=== PATIENT | male | born 1955 | race Caucasian/White ===

== ENCOUNTER 2022-03-06 12:50 | Emergency (ER) | payer MEDICARE, SELFPAY ==
[2022-03-06 12:53] VITALS: BP 137/72; PULSE 92; RESP 18; TEMP 36.5; O2SAT 98; BMI 29.3
--- NOTE | 2022-03-06 13:02 | EKG12_ITS ---
Test Reason : CP Blood Pressure : / mmHG Vent. Rate : 090 BPM Atrial Rate : 090 BPM P-R Int : 192 ms QRS Dur : 166 ms QT Int : 436 ms P-R-T Axes : 060 -77 064 degrees QTc Int : 533 ms Atrial-sensed ventricular-paced rhythm Abnormal ECG Confirmed by ROBIN CORTES, CALOS ([id number]), medical transcription editor SEVERINO JOHNSON ([id number]) on 03/08/2022 1:12:50 PM Referred By: Confirmed By:CALOS KELLY MD
--- NOTE | 2022-03-06 13:05 | ED.VIS.CHEST ---
HPI <KYLE Amin - Last Filed: 03/06/22 18:18> History of Present Illness Chief Complaint: Chest Pain Narrative Narrative: 66-year-old male with PMH of HTN, HLD, DM2, CAD with 2 stents, pacemaker presents with an episode of chest pressure and lightheadedness. 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 No nausea/vomiting or diaphoresis. Symptoms lasted about 20 to 30 minutes. According to EMS he briefly had a heart rate in the 30s during transport but arrived with normal vital signs. He now feels back to normal except tired. He states his pacemaker was placed 8 months ago at [facility] due to low heart rate in the 30s. He has not had issues with it. He actually has a routine appointment with his scientific informatics project leader, Dr. Minor, in 2 days. He also reports 2 months ago having a normal stress test and echo. He has no history of DVT/PE or recent leg pain or swelling. PFS <KYLE Amin - Last Filed: 03/06/22 18:18> [facility] Medical History (Updated 03/06/22 @ 17:48 by KYLE Amin) Diabetes mellitus Hyperlipidemia Hypertension Pacemaker Home Medications aspirin 81 mg PO DAILY 03/06/22 [History Last Taken Unknown] clopidogrel [Plavix] 75 mg PO DAILY 03/06/22 [History Last Taken Unknown] ergocalciferol (vitamin D2) [Vitamin D2] 1,250 mcg PO QWEEK 03/06/22 [History Last Taken Unknown] felodipine 5 mg PO DAILY 03/06/22 [History Last Taken Unknown] insulin aspart U-100 [Novolog U-100 Insulin aspart] 22 unit SUBCUT TIDCM 03/06/22 [History Last Taken Unknown] insulin aspart U-100 [Novolog U-100 Insulin aspart] See Protocol SUBCUT TID 03/06/22 [History Last Taken Unknown] insulin degludec [Tresiba FlexTouch U-100] 35 unit SUBCUT BID 03/06/22 [History Last Taken Unknown] losartan 100 mg PO DAILY 03/06/22 [History Last Taken Unknown] magnesium oxide 400 mg PO QHS 03/06/22 [History Last Taken Unknown] metformin 500 mg PO BID 03/06/22 [History Last Taken Unknown] metoprolol succinate 25 mg PO QHS 03/06/22 [History Last Taken Unknown] nitroglycerin [Nitrostat] 0.4 mg SUBLINGUAL Q5M PRN 03/06/22 [History Last Taken Unknown] pantoprazole [Protonix] 40 mg PO DAILY 03/06/22 [History Last Taken Unknown] rosuvastatin 40 mg PO QHS 03/06/22 [History Last Taken Unknown] Allergy/AdvReac Type Severity Reaction Status Date / Time No Known Allergies Allergy Verified 03/06/22 12:52 Social History Smoking Status: Current every day smoker tobacco type: e-cigarettes ROS <KYLE Amin - Last Filed: 03/06/22 18:18> ROS ED ROS Narrative Constitutional: Negative for fever, chills, malaise. Eyes: Negative for visual change. ENT: Negative for sore throat, ear pain, rhinorrhea. CVS: Positive for palpitations, chest pain. Negative for syncope. Respiratory: Positive for shortness of breath. Negative for cough, orthopnea. GI: Negative for abdominal pain, nausea, vomiting, diarrhea, constipation, melena, hematochezia. : Negative for dysuria, hematuria or frequency. Neuro: Negative for headache, motor/sensory dysfunction. Skin: Negative for rash, abscess, or wound. Musc: Negative for joint pain, swelling, trauma. Heme: Negative for easy bruising, bleeding, lymphadenopathy. EXAM <KYLE Amin - Last Filed: 03/06/22 18:18> Physical Exam Narrative Exam Narrative: CONST: Patient sitting in no acute distress. EYES: Normal inspection. NECK: Normal inspection. RESP: No respiratory distress, CTAB. CVS: Regular rate and rhythm, no murmur, no gallop. ABD: Soft and nontender, no guarding or rebound, nondistended, no hepatosplenomegaly. SKIN: Color normal, no rash, warm, dry, intact. EXTREMITIES: Normal appearance, no pedal edema. NEURO: Oriented x4. PSYCH: Normal affect. Const Vital Signs: 03/06/22 12:53 03/06/22 13:09 03/06/22 14:02 Temperature 97.7 F L Temperature Source Temporal Pulse Rate 92 83 Respiratory Rate 18 16 Blood Pressure 137/72 H 144/76 H Blood Pressure Mean 93 98 Pulse Ox 98 97 Oxygen Delivery Method Room Air Room Air Room Air 03/06/22 15:00 03/06/22 16:00 03/06/22 17:17 Temperature Temperature Source Pulse Rate 87 88 81 Respiratory Rate 23 H 18 18 Blood Pressure 137/69 H 130/71 H 140/83 H Blood Pressure Mean 91 90 102 Pulse Ox 96 95 96 Oxygen Delivery Method Room Air Room Air Room Air 03/06/22 17:57 Temperature Temperature Source Pulse Rate 86 Respiratory Rate 18 Blood Pressure 169/83 H Blood Pressure Mean Pulse Ox 95 Oxygen Delivery Method <Dr. Eobni Mead MD - Last Filed: 03/06/22 14:43> Physical Exam Const Vital Signs: 03/06/22 12:53 03/06/22 13:09 03/06/22 14:02 Temperature 97.7 F L Temperature Source Temporal Pulse Rate 92 83 Respiratory Rate 18 16 Blood Pressure 137/72 H 144/76 H Blood Pressure Mean 93 98 Pulse Ox 98 97 Oxygen Delivery Method Room Air Room Air Room Air 03/06/22 15:00 03/06/22 16:00 03/06/22 17:17 Temperature Temperature Source Pulse Rate 87 88 81 Respiratory Rate 23 H 18 18 Blood Pressure 137/69 H 130/71 H 140/83 H Blood Pressure Mean 91 90 102 Pulse Ox 96 95 96 Oxygen Delivery Method Room Air Room Air Room Air 03/06/22 17:57 Temperature Temperature Source Pulse Rate 86 Respiratory Rate 18 Blood Pressure 169/83 H Blood Pressure Mean Pulse Ox 95 Oxygen Delivery Method MDM <KYLE Amin - Last Filed: 03/06/22 18:18> [facility] Narrative Medical decision making narrative: Patient presents with chest pain, shortness of breath, and presyncope. He appears well and nontoxic. Vital signs within normal limits. On examination heart is regular. Lungs clear. Abdomen soft, nontender. He has no lower extremity edema or tenderness. CBC is within normal limits. BMP shows creatinine of 1.37. Outside records from 03/02 show a creatinine of 0.82 so he will be given IVF for mild dehydration. EKG shows paced rhythm with no acute ischemic findings. High-sensitivity troponin is 87, delta 102 (less than 20 delta not significant). Pacemaker was interrogated the [employer] manufacturer representative, Hi, states he had 8 minutes of A fib and the ventricular lead is not capturing all the time. He adjusted the voltage to a higher level and set it so it auto-checks every night if it needs and energy adjustment (this setting was previously off). The [employer] rep spoke with the transportation supervisor EP physician at [facility], Dr. Cervantes, who is comfortable with discharge and close follow up which is scheduled on Tuesday. Patient counseled to return for new issues prior to then. 1. Pacemaker dysfunction with episode of A fib and bradycardia 2. Chest pain, resolved Lab Data Labs: Laboratory Results - last 24 hr 03/06/22 03/06/22 03/06/22 13:20 13:20 15:15 WBC 6.0 RBC 4.53 L Hgb 13.6 Hct 38.8 L MCV 85.7 MCH 30.0 MCHC 35.1 RDW Std Deviation 38.1 RDW Coeff of Kristian 12.3 Plt Count 160 MPV 9.3 Immature Gran % (Auto) 0.200 Neut % (Auto) 65.9 Lymph % (Auto) 24.6 Island % (Auto) 7.2 Eos % (Auto) 1.3 Baso % (Auto) 0.8 Absolute Neuts (auto) 4.0 Absolute Lymphs (auto) 1.48 Nucleated RBC % 0 Sodium 139 Potassium 4.0 Chloride 107 Carbon Dioxide 25.0 Anion Gap 7 BUN 17 Creatinine 1.37 H Estim Creat Clear Calc 61.56 Est GFR (MDRD) Af Amer 67 Est GFR (MDRD) Non-Af 56 L BUN/Creatinine Ratio 12.4 Glucose 215 H Calcium 8.9 Troponin I High Sens 87 H 102 H Radiography Diagnostic Testing: Clinical Impression(s) from Imaging Studies Chest X-Ray 03/06/22 13:21 IMPRESSION: No active disease. Electronically Signed: Aric Suazo MD at 14:15 EDT , EKG Initial EKG: Attestation: I personally reviewed and interpreted this EKG as follows: Comments: Atrial sensed ventricular paced rhythm, MO interval 192 ms, QRS duration 166 ms, QTC 533 ms. 90 bpm <Dr. Eboni Mead MD - Last Filed: 03/06/22 14:43> MDM Lab Data Labs: Laboratory Results - last 24 hr 03/06/22 03/06/22 03/06/22 13:20 13:20 15:15 WBC 6.0 RBC 4.53 L Hgb 13.6 Hct 38.8 L MCV 85.7 MCH 30.0 MCHC 35.1 RDW Std Deviation 38.1 RDW Coeff of Kristian 12.3 Plt Count 160 MPV 9.3 Immature Gran % (Auto) 0.200 Neut % (Auto) 65.9 Lymph % (Auto) 24.6 Island % (Auto) 7.2 Eos % (Auto) 1.3 Baso % (Auto) 0.8 Absolute Neuts (auto) 4.0 Absolute Lymphs (auto) 1.48 Nucleated RBC % 0 Sodium 139 Potassium 4.0 Chloride 107 Carbon Dioxide 25.0 Anion Gap 7 BUN 17 Creatinine 1.37 H Estim Creat Clear Calc 61.56 Est GFR (MDRD) Af Amer 67 Est GFR (MDRD) Non-Af 56 L BUN/Creatinine Ratio 12.4 Glucose 215 H Calcium 8.9 Troponin I High Sens 87 H 102 H Radiography Diagnostic Testing: Clinical Impression(s) from Imaging Studies Chest X-Ray 03/06/22 13:21 IMPRESSION: No active disease. Electronically Signed: Aric Suazo MD at 14:15 EDT , Treatment and Re-Evaluation Narrative: Patient seen and evaluated with ELIEZER. I personally interviewed and examined the patient. I was involved in all aspects of patient's orders, interpretation of results, and treatment. Patient presents via EMS with lightheadedness and near syncope along with shortness of breath. Symptoms lasted approximately 30 minutes and seem to be improved at this time. Patient does have a pacemaker and is scheduled to follow-up with his EP doctor on Tuesday. He denies having chest pain during this episode. Patient sitting upright in bed no acute distress. Head neck examination unremarkable. Heart is regular rate and rhythm. Lung sounds are clear. Abdomen is soft nontender. Neuro exam reveals no focal deficits. EKG, chest x-ray, lab work obtained. Initial troponin is 87. We did review records from recent admission to [facility]. At that time his troponin values were in the 70s and 80s. We will repeat a 2-hour troponin to ensure no significant change. Chest x-ray per mitral rotation reveals no acute abnormalities. CBC and chemistry studies otherwise remarkable only for slightly elevated creatinine at 1.37. Patient is given IV fluids. Pacemaker is interrogated. I received a phone call from the [employer] rep. Patient reportedly had a 8-minute episode of atrial fibrillation earlier today. During that episode it appeared the ventricular lead was not correctly capturing and patient was having episodes of bradycardia. The patient is currently in sinus rhythm. [employer] rep will come to the emergency room to evaluate the pacemaker and attempt to reset the ventricular lead. Discharge Plan Triage Chief Complaint: Chest Pain ED Provider: Parul Diehl Dx/Rx/DC Orders Clinical Impression: Pacemaker complications Instructions: Discharge Instructions for ... Prescriptions: No Action felodipine 5 mg Tablet Extended Release 24 Hr 5 mg PO DAILY RF: 0 clopidogrel [Plavix] 75 mg Tablet 75 mg PO DAILY RF: 0 insulin aspart U-100 [Novolog U-100 Insulin aspart] 100 unit/mL Solution 22 unit SUBCUT TIDCM RF: 0 insulin aspart U-100 [Novolog U-100 Insulin aspart] 100 unit/mL Solution See Protocol unit SUBCUT TID RF: 0 nitroglycerin [Nitrostat] 0.4 mg Tablet, Sublingual 0.4 mg SUBLINGUAL Q5M PRN (Reason: Angina) RF: 0 metoprolol succinate 25 mg Tablet Extended Release 24 Hr 25 mg PO QHS RF: 0 ergocalciferol (vitamin D2) [Vitamin D2] 1,250 mcg (50,000 unit) Capsule 1,250 mcg PO QWEEK RF: 0 losartan 100 mg Tablet 100 mg PO DAILY RF: 0 metformin 500 mg Tablet Extended Release 24 Hr 500 mg PO BID RF: 0 rosuvastatin 40 mg Tablet 40 mg PO QHS RF: 0 pantoprazole [Protonix] [address] For Susp In Packet 40 mg PO DAILY RF: 0 magnesium oxide 400 mg magnesium Capsule 400 mg PO QHS RF: 0 Tresiba FlexTouch U-100 100 unit/mL (3 mL) Insulin Pen 35 unit SUBCUT BID RF: 0 aspirin 81 mg Capsule 81 mg PO DAILY RF: 0 Primary Care Provider: [facility] Doctor,Out of Referrals: [facility] Doctor,Out of [Primary Care Provider] - Activity Restrictions/Additional Instructions: [employer] rep adjusted your pacemaker. He spoke with Dr. Cervantes at [facility] who is on-call for electrophysiology. He agreed you can follow-up with your doctor as scheduled on Tuesday. If you have any new symptoms or issues before then please come back to the emergency department. Disposition Disposition: Home, Self Care Discharge Date/Time: 03/06/22 18:04
--- NOTE | 2022-03-06 13:21 | RAD_ITS ---
STUDY: X-RAY CHEST REASON FOR EXAM: Male, 66 years old. chest pain TECHNIQUE: Single AP portable view of the chest. COMPARISON: None. FINDINGS: Left subclavian pacemaker. The lungs are clear and expanded. There is no demonstrated pleural abnormality. Normal size heart. Normal mediastinum and sreedhar. Normal visualized pulmonary arteries. Normal visualized aortic arch and descending thoracic aorta. Normal visualized thoracic spine. Normal visualized ribs, clavicles, and shoulders. There is no demonstrated abnormality of the visualized soft tissue structures of the upper abdomen. RAD/Chest 1 View (Portable) IMPRESSION: No active disease. Electronically Signed: Aric Suazo MD at 14:15 EDT ,
[2022-03-06 13:25] LABS: Absolute Lymphocyte Count 1.48 X10^3/uL (0.83-4.51); Basophil# 0.05 X10^3/uL; Basophil% 0.8 % (0-1); Eosinophil# 0.08 X10^3/uL; Eosinophils% 1.3 % (0-5); Hematocrit 38.8 % (40-54); Hemoglobin 13.6 g/dL (13.0-16.5); Lymphocyte # 1.48 X10^3/ul (0.83-4.51); Lymphocyte % 24.6 % (19-41); Mean Corp Hgb Conc 35.1 g/dL (32-36); Mean Corpuscular Volume 85.7 fL (80-94); Mean Platelet Vol. 9.3 fl (6.2-12.0); Monocyte# 0.43 X10^3/uL; Monocyte% 7.2 % (0-10); NRBC Flagged by Analyzer 0 % (0-5); Neutrophil # 3.96 X10^3/uL (2.7-7.7); Neutrophil % 65.9 % (47-70); Platelet Count 160 K/mm3 (150-450); RBC Distribution Width CV 12.3 % (11.6-14.6); RBC Distribution Width SD 38.1 fl (35.1-43.9); Red Blood Count 4.53 M/mm3 (4.6-6.2)
[2022-03-06 13:43] LABS: Anion Gap 7 (5-15); BUN 17 mg/dL (7-18); BUN/Creat Ratio 12.4 RATIO (10-20); Calcium,Total 8.9 mg/dL (8.5-10.1); Chloride 107 mmol/L (98-107); Creatinine, Serum 1.37 mg/dL (0.70-1.30); EST Glomerular Filtration Rate 56 mL/min (>60); Est Glom Filt Rate - Afr Amer 67 mL/min (>60); Estimated Creatinine Clearance 61.56 ml/min; Glucose 215 mg/dL (74-106); Sodium Level 139 mmol/L (136-145); Troponin-I HS (w/2H Reflex) 87 pg/mL (3.0-78.0)
[2022-03-06 14:02] VITALS: BP 144/76; PULSE 83; RESP 16; O2SAT 97
[2022-03-06] MEDS: 0.9% Normal Saline 1,000 ML 999 ML IV (14:03)
[2022-03-06 15:00] VITALS: BP 137/69; PULSE 87; RESP 23; O2SAT 96
[2022-03-06 15:22] LABS: Reflex Troponin-HS? (from REC) Y
[2022-03-06 16:00] VITALS: BP 130/71; PULSE 88; RESP 18; O2SAT 95
[2022-03-06 16:04] LABS: Troponin-I HS 102 pg/mL (3.0-78.0)
[2022-03-06 17:17] VITALS: BP 140/83; PULSE 81; RESP 18; O2SAT 96
[2022-03-06 17:57] VITALS: BP 169/83; PULSE 86; RESP 18; O2SAT 95
== END 2022-03-06 18:04 | disposition home or self-care (01) ==
PROVIDERS: Emergency Provider Physician Assistant; Visit Provider Physician Assistant
DX: I48.91 Unspecified atrial fibrillation (principal); E11.9 Type 2 diabetes mellitus without complications; Z79.4 Long term (current) use of insulin; I25.10 Atherosclerotic heart disease of native coronary artery without angina pectoris; I10 Essential (primary) hypertension; E86.0 Dehydration; E78.5 Hyperlipidemia, unspecified; Z95.0 Presence of cardiac pacemaker; F17.290 Nicotine dependence, other tobacco product, uncomplicated; Z79.82 Long term (current) use of aspirin; Z79.02 Long term (current) use of antithrombotics/antiplatelets; Z79.899 Other long term (current) drug therapy
CPT/HCPCS: 71045; 80048; 84484; 85025; 93005; 99285; J7030; A4216